=== PATIENT | male | born 1955 | race Caucasian/White ===

== ENCOUNTER 2017-05-07 20:07 | Emergency (ER) | payer BC, OTHER ==
[~2017-05-07] VITALS: Ht 172.7 cm; Wt 79.5 kg
[2017-05-07] MEDS ORDERED: ONDANSETRON HCL 4 MG/2 ML VIAL IV PUSH ONE (20:30)
[2017-05-07] MEDS ORDERED: MECLIZINE HCL 25 MG TAB PO ONE (20:30)
[2017-05-07] MEDS ORDERED: SODIUM CHLORID 0.9% 500 ML INJ 500 ML IV ONE (20:30)
--- NOTE | 2017-05-07 20:31 | PD ---
HPI Chief Complaint: GI Complaint Time Seen by Provider: 20:16 Travel History International Travel<30 days: No Contact w/Intl Traveler<30days: No Traveled to known affect area: No History of Present Illness HPI 62-year-old male complains of dizziness and nausea vomiting. Patient states the symptoms started this evening. Patient states that he has the feeling of the room spinning around him. Patient states that the dizziness is better when he closes his eye. Patient denies any headache. Patient denies any neck pain. Patient denies any chest pain or shortness of breath. Patient denies abdominal pain. Patient denies any focal weakness or numbness of extremity. Patient states that he had similar episodes in the past. Patient states that the episodes usually associated with food poisoning. PFSH Social History Tobacco Use: No Allergies-Medications (Allergen,Severity, Reaction): Coded Allergies: No Known Allergies (Unverified , 05/07/17) Reported Meds & Prescriptions Reported Meds & Active Scripts Active Zofran Odt (Ondansetron Odt) 4 Mg Tab 4 Mg SL Q6HR PRN Meclizine (Meclizine HCl) 25 Mg Tab 25 Mg PO TID PRN Reported Levothyroxine (Levothyroxine Sodium) 175 Mcg Tab 175 Mcg PO DAILY Omeprazole 20 Mg Tab 20 Mg PO DAILY Atorvastatin (Atorvastatin Calcium) 20 Mg Tab 20 Mg PO DAILY Review of Systems General / Constitutional: No: Fever Eyes: No: Visual changes HENT: No: Headaches Cardiovascular: No: Chest Pain or Discomfort Respiratory: No: Shortness of Breath Gastrointestinal: No: Abdominal Pain Genitourinary: No: Dysuria Musculoskeletal: No: Pain Skin: No Rash Neurologic: No: Weakness Psychiatric: No: Depression Endocrine: No: Polydipsia Hematologic/Lymphatic: No: Easy Bruising Physical Exam Narrative GENERAL: Well-nourished, well-developed patient. SKIN: Focused skin assessment warm/dry. HEAD: Normocephalic. EYES: No scleral icterus. No injection or drainage. Pupils 1.5 mm equal reactive. TM: Clear NECK: Supple, trachea midline. No JVD or lymphadenopathy. CARDIOVASCULAR: Regular rate and rhythm without murmurs, gallops, or rubs. RESPIRATORY: Breath sounds equal bilaterally. No accessory muscle use. GASTROINTESTINAL: Abdomen soft, non-tender, nondistended. MUSCULOSKELETAL: No cyanosis, or edema. BACK: Nontender without obvious deformity. No CVA tenderness. Neurologic exam normal. Data Data Last Documented VS Vital Signs Date Time Temp Pulse Resp B/P (MAP) Pulse Ox O2 Delivery O2 Flow Rate FiO2 05/07/17 20:41 98.4 70 18 153/73 (99) 99 Orders Orders Sodium Chlorid 0.9% 500 Ml Inj (Ns 500 M (05/07/17 20:30) Meclizine (Antivert) (05/07/17 20:30) Ondansetron Inj (Zofran Inj) (05/07/17 20:30) Ed Discharge Order (05/07/17 22:03) MDM Medical Decision Making Medical Screen Exam Complete: Yes Emergency Medical Condition: Yes Differential Diagnosis Differential diagnosis including acute vertigo, gastroenteritis, electrolyte imbalance, TIA, CVA. Narrative Course 62-year-old male with severe dizziness and nausea vomiting. Normal saline solution 500 cc IV bolus. Meclizine 25 mg by mouth. Zofran 4 mg IV. Diagnosis Primary Impression: Acute onset of severe vertigo Patient Instructions: General Instructions Additional Instructions: Take medication as needed. Follow-up with personal physician and ENT if persistent problem. Return if worse. Med/Other Pt SpecificInfo: Prescription(s) given Scripts Ondansetron Odt (Zofran Odt) 4 Mg Tab 4 MG SL Q6HR Y for Nausea/Vomiting, #12 TAB 0 Refills Prov: Alonso Madrid MD 05/07/17 Meclizine (Meclizine) 25 Mg Tab 25 MG PO TID Y for VERTIGO, #30 TAB 0 Refills Prov: Alonso Madrid MD 05/07/17 Disposition: 01 DISCHARGE HOME Condition: Stable Alonso Madrid MD May 07, 2017 20:31
[2017-05-07] MEDS ORDERED: LEVO175T2 PO (20:39)
[2017-05-07] MEDS ORDERED: OMEP20TA93 PO (20:39)
[2017-05-07] MEDS ORDERED: ATOR20TA15 PO (20:39)
[2017-05-07 20:41] VITALS: BP 153/73; PULSE 70; RESP 18; TEMP 98.4; O2SAT 99
[2017-05-07 21:05] VITALS: BP 126/61; PULSE 61; RESP 16; O2SAT 100
[2017-05-07] MEDS ORDERED: MECL-62 PO (22:02)
[2017-05-07] MEDS ORDERED: ZOFR4TAB3 SL (22:02)
[2017-05-07 22:05] VITALS: BP 131/64; PULSE 62; RESP 16; O2SAT 99
== END 2017-05-07 22:30 | disposition home or self-care (01) ==
LOC: PHED 20:07
DX: R42 Dizziness and giddiness (principal); R11.2 Nausea with vomiting, unspecified
CPT/HCPCS: 96361; 96374; 99284; J2405; J7040